=== PATIENT | male | born 1970 ===

== ENCOUNTER 2016-11-14 21:28 | Emergency (ER) | payer OTHER ==
[2016-11-14 21:44] VITALS: BP 125/101; PULSE 100; RESP 20; TEMP 97.9; O2SAT 99
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
[2016-11-14] MEDS ORDERED: Lidocaine 5% Patch TD ONE (22:22)
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
[2016-11-15] MEDS ORDERED: Lidocaine 5% Patch TD SCH (10:00)
--- NOTE | 2016-11-15 15:07 | CARD ---
APPROVED REPORT EKG Measurement Heart [id number] <Conclusion> Normal sinus rhythST elevation leads V2 and V3, consider acute injury Moderate voltage criteria for LVH, may be normal variant Nonspecific T wave abnormality Abnormal ECG
== END 2016-11-14 23:18 | disposition home or self-care (01) ==
LOC: C.ER 21:28
DX: S33.5XXA Sprain of ligaments of lumbar spine, initial encounter (principal); V49.49XA Driver injured in collision with other motor vehicles in traffic accident, initial encounter; Y92.410 Unspecified street and highway as the place of occurrence of the external cause